=== PATIENT | male | born 1950 | race Caucasian/White ===

== ENCOUNTER 2018-05-13 16:58 | Inpatient (IN) | payer OTHER ==
[2018-05-13] MEDS: morphine 4 MG/ML VIAL IV (17:08)
[2018-05-13] MEDS: ONDANSETRON 4 MG INJ IV (17:08)
[2018-05-13 17:17] LABS: ADD MAN DIFF? NO
[2018-05-13 17:18] LABS: BASOPHIL # 0.1 10^3/ul (0.0-0.1); BASOPHILS % 0.4 % (0.0-2.0); EOSINOPHILS # 0.1 10^3/ul (0.0-0.5); EOSINOPHILS % 0.7 % (0.0-7.0); HEMATOCRIT 41.5 % (42.0-52.0); HEMOGLOBIN 14.3 g/dl (14.0-18.0); LYMPHOCYTES # 2.2 10^3/ul (0.8-2.9); LYMPHOCYTES % 13.7 % (15.0-51.0); MEAN CORPUSCULAR HEMOGLOBIN 31.8 pg (29.0-33.0); MEAN CORPUSCULAR HGB CONC 34.5 g/dl (32.0-37.0); MEAN CORPUSCULAR VOLUME 92.2 fl (82.0-101.0); MEAN PLATELET VOLUME 9.8 fl (7.4-10.4); MONOCYTES % 6.1 % (0.0-11.0); NEUTROPHIL # 12.5 10^3/ul (1.6-7.5); NEUTROPHILS % 78.4 % (39.0-77.0); PLATELET COUNT 292 10^3/UL (140-415); RED CELL DISTRIBUTION WIDTH 13.4 % (11.5-14.5)
[2018-05-13 17:38] LABS: ANION GAP 17 (8-16); BLOOD UREA NITROGEN 17 mg/dl (7-20); CALCIUM 9.7 mg/dl (8.4-10.2); CARBON DIOXIDE 21 mmol/L (21-31); CHLORIDE 107 mmol/L (97-110); CREATININE 1.05 mg/dl (0.61-1.24); GLUCOSE 143 mg/dl (70-220); INR 0.96; POTASSIUM 3.9 mmol/L (3.5-5.1); PROTIME 12.9 Sec (11.9-14.9); SODIUM 141 mmol/L (135-144)
[2018-05-13 17:39] LABS: PARTIAL THROMBOPLASTIN TIME 37.7 Sec (25.0-35.0)
[2018-05-13 17:48] LABS: TROPONIN-I 0.011 ng/ml (0.000-0.120)
[2018-05-13 18:22] LABS: ETHANOL < 10.0 mg/dl
[2018-05-13] MEDS ORDERED: ONDANSETRON 4 MG INJ IV ×2 (18:30→19:00)
[2018-05-13] MEDS ORDERED: ACETAMINOPHEN 325 MG TAB PO (18:30)
[2018-05-13] MEDS ORDERED: morphine 2 MG INJ IV ×2 (19:00→23:30)
[2018-05-13] MEDS ORDERED: MAGNESIUM HYDROXIDE 30ML CUP PO (19:00)
[2018-05-13] MEDS ORDERED: BISACODYL (EC) 5 MG TAB PO (19:00)
[2018-05-13] MEDS ORDERED: DOCUSATE SODIUM 100 MG CAP PO (19:00)
[2018-05-13] MEDS ORDERED: NACL 0.9% 3 ML SYG IV (19:00)
[2018-05-13] MEDS: HYDROmorphONE 2 MG/ML SYG IV (19:13)
[2018-05-13] MEDS: SOD CHLORIDE 0.45% 1,000 ML IV (20:11)
[2018-05-13] MEDS: L ACIDOPHIL/B LACTIS/B LONGUM CAPSULE PO (21:00)
[2018-05-13] MEDS: ATORVASTATIN 40 MG TAB PO (21:00)
[2018-05-13] MEDS ORDERED: METOCLOPRAMIDE 10 MG INJ (22:34)
[2018-05-13] MEDS ORDERED: MIDAZOLAM 1 MG/ML 2 ML INJ (22:34)
[2018-05-13] MEDS ORDERED: ONDANSETRON 4 MG INJ (22:34)
[2018-05-13] MEDS ORDERED: CEFAZOLIN 1 GM INJ (22:37)
[2018-05-13] MEDS ORDERED: FENTAnyl 50 MCG/ML VIAL (22:37)
[2018-05-13] MEDS: POLYMYXIN B 500000 UNIT INJ (23:03)
[2018-05-13] MEDS: BACITRACIN 50000 UNITS INJ (23:03)
[2018-05-13] MEDS ORDERED: HYDROCODONE/APAP (5/325) TAB PO (23:30)
[2018-05-14 00:49] LABS: ADD MAN DIFF? NO
[2018-05-14 00:50] LABS: WHITE BLOOD COUNT 13.6 10^3/ul (4.8-10.8)
[2018-05-14 00:50] LABS: BASOPHILS % 0.1 % (0.0-2.0); HEMATOCRIT 36.1 % (42.0-52.0); HEMOGLOBIN 12.2 g/dl (14.0-18.0); LYMPHOCYTES # 1.2 10^3/ul (0.8-2.9); LYMPHOCYTES % 9.1 % (15.0-51.0); MEAN CORPUSCULAR HEMOGLOBIN 31.7 pg (29.0-33.0); MEAN CORPUSCULAR HGB CONC 33.8 g/dl (32.0-37.0); MEAN CORPUSCULAR VOLUME 93.8 fl (82.0-101.0); MEAN PLATELET VOLUME 9.2 fl (7.4-10.4); MONOCYTE # 0.5 10^3/ul (0.3-0.9); MONOCYTES % 3.3 % (0.0-11.0); NEUTROPHIL # 11.8 10^3/ul (1.6-7.5); NEUTROPHILS % 86.8 % (39.0-77.0); PLATELET COUNT 227 10^3/UL (140-415); RED BLOOD COUNT 3.85 10^6/ul (4.70-6.10); RED CELL DISTRIBUTION WIDTH 13.5 % (11.5-14.5)
[2018-05-14 01:14] LABS: ANION GAP 8 (8-16); BLOOD UREA NITROGEN 20 mg/dl (7-20); CALCIUM 9.1 mg/dl (8.4-10.2); CARBON DIOXIDE 30 mmol/L (21-31); CHLORIDE 104 mmol/L (97-110); CREATININE 0.94 mg/dl (0.61-1.24); GLUCOSE 145 mg/dl (70-220); POTASSIUM 4.3 mmol/L (3.5-5.1); SODIUM 138 mmol/L (135-144)
[2018-05-14] MEDS: SOD CHLORIDE 0.45% 1,000 ML IV ×2 (04:37→11:37)
[2018-05-14 05:08] LABS: ADD MAN DIFF? NO
[2018-05-14 05:13] LABS: BASOPHILS % 0.2 % (0.0-2.0); EOSINOPHILS % 0.1 % (0.0-7.0); HEMATOCRIT 35.7 % (42.0-52.0); HEMOGLOBIN 11.9 g/dl (14.0-18.0); LYMPHOCYTES # 2.2 10^3/ul (0.8-2.9); MEAN CORPUSCULAR HEMOGLOBIN 31.2 pg (29.0-33.0); MEAN CORPUSCULAR HGB CONC 33.3 g/dl (32.0-37.0); MEAN CORPUSCULAR VOLUME 93.7 fl (82.0-101.0); MONOCYTE # 0.7 10^3/ul (0.3-0.9); MONOCYTES % 6.6 % (0.0-11.0); NEUTROPHIL # 7.5 10^3/ul (1.6-7.5); NEUTROPHILS % 71.4 % (39.0-77.0); PLATELET COUNT 220 10^3/UL (140-415); RED BLOOD COUNT 3.81 10^6/ul (4.70-6.10); RED CELL DISTRIBUTION WIDTH 13.5 % (11.5-14.5)
[2018-05-14 05:13] LABS: WHITE BLOOD COUNT 10.4 10^3/ul (4.8-10.8)
[2018-05-14 05:47] LABS: ALANINE AMINOTRANSFERASE 26 IU/L (13-69); ALBUMIN 3.4 g/dl (3.3-4.9); ALBUMIN/GLOBULIN RATIO 1.06; ALKALINE PHOSPHATASE 70 IU/L (42-121); ANION GAP 11 (8-16); ASPARTATE AMINO TRANSFERASE 24 IU/L (15-46); BILIRUBIN,INDIRECT 0.6 mg/dl (0-1.1); BILIRUBIN,TOTAL 0.6 mg/dl (0.2-1.3); BLOOD UREA NITROGEN 20 mg/dl (7-20); CALCIUM 8.8 mg/dl (8.4-10.2); CARBON DIOXIDE 29 mmol/L (21-31); CHLORIDE 105 mmol/L (97-110); CREATININE 0.89 mg/dl (0.61-1.24); GLUCOSE 103 mg/dl (70-220); MAGNESIUM 1.7 mg/dl (1.7-2.5); POTASSIUM 4.5 mmol/L (3.5-5.1); SODIUM 140 mmol/L (135-144); TOTAL PROTEIN 6.6 g/dl (6.1-8.1)
[2018-05-14] MEDS: CEFAZOLIN 1 GM/50 ML (PMX) 50 ML IVPB ×3 (06:05→21:41)
[2018-05-14] MEDS: L ACIDOPHIL/B LACTIS/B LONGUM CAPSULE PO ×3 (09:41→21:36)
[2018-05-14] MEDS: LISINOPRIL 20 MG TAB PO (09:42)
[2018-05-14] MEDS: HYDROCODONE/APAP (5/325) TAB PO (18:43)
[2018-05-14] MEDS: ATORVASTATIN 40 MG TAB PO (21:36)
[2018-05-15] MEDS: SOD CHLORIDE 0.45% 1,000 ML IV ×2 (00:37→13:32)
[2018-05-15] MEDS: HYDROCODONE/APAP (5/325) TAB PO (00:51)
[2018-05-15] MEDS: CEFAZOLIN 1 GM/50 ML (PMX) 50 ML IVPB ×3 (06:00→21:03)
[2018-05-15] MEDS: L ACIDOPHIL/B LACTIS/B LONGUM CAPSULE PO ×3 (08:27→21:02)
[2018-05-15] MEDS: LISINOPRIL 20 MG TAB PO (08:28)
[2018-05-15] MEDS: ATORVASTATIN 40 MG TAB PO (21:02)
[2018-05-15] MEDS: ACETAMINOPHEN 325 MG TAB PO (21:03)
[2018-05-16] MEDS: CEFAZOLIN 1 GM/50 ML (PMX) 50 ML IVPB ×3 (06:38→22:44)
[2018-05-16 06:51] LABS: AMPHETAMINE/METHAMPHETAMINE Negative (NEGATIVE); BARBITURATES Negative (NEGATIVE); BENZODIAZEPINES Negative (NEGATIVE); CANNABINOIDS Positive (NEGATIVE); COCAINE Negative (NEGATIVE); OPIATES Positive (NEGATIVE)
[2018-05-16] MEDS ORDERED: CEFAZOLIN 1 GM INJ (07:00)
[2018-05-16] MEDS ORDERED: METOCLOPRAMIDE 10 MG INJ (07:00)
[2018-05-16] MEDS ORDERED: DEXAMETHASONE 4 MG/ML 1 ML INJ (07:00)
[2018-05-16] MEDS ORDERED: ONDANSETRON 4 MG INJ (07:00)
[2018-05-16] MEDS: L ACIDOPHIL/B LACTIS/B LONGUM CAPSULE PO ×3 (08:30→20:17)
[2018-05-16] MEDS: LISINOPRIL 20 MG TAB PO (08:30)
[2018-05-16] MEDS ORDERED: MEPERIDINE 25 MG INJ IV (17:30)
[2018-05-16] MEDS ORDERED: DIPHENHYDRAMINE 50 MG INJ IV (17:30)
[2018-05-16] MEDS ORDERED: LABETALOL HCL 20MG INJ IV (17:30)
[2018-05-16] MEDS ORDERED: ONDANSETRON 4 MG INJ IV (17:30)
[2018-05-16] MEDS ORDERED: HYDROmorphONE 1 MG/5 ML IV SYRINGE IV ×2 (17:30)
[2018-05-16] MEDS ORDERED: FENTAnyl 50 MCG/ML VIAL IV ×2 (17:30)
[2018-05-16] MEDS ORDERED: hydrALAzine 20 MG INJ IV (17:30)
[2018-05-16] MEDS ORDERED: BACITRACIN 50000 UNITS INJ (17:33)
[2018-05-16] MEDS ORDERED: POLYMYXIN B 500000 UNIT INJ (17:36)
[2018-05-16] MEDS ORDERED: PROPOFOL 20 ML (17:55)
[2018-05-16] MEDS ORDERED: LIDOCAINE 2% (SDV) 5 ML INJ (17:55)
[2018-05-16] MEDS ORDERED: FENTAnyl 50 MCG/ML VIAL (17:56)
[2018-05-16] MEDS ORDERED: MIDAZOLAM 1 MG/ML 2 ML INJ (17:56)
[2018-05-16] MEDS: POLYMYXIN B 500000 UNIT INJ IRR (18:25)
[2018-05-16] MEDS ORDERED: ACETAMINOPHEN 1000MG/100ML IV 100 ML (18:37)
[2018-05-16] MEDS: IPRATROPIUM (NEB) 0.5 MG/2.5 ML AMP HHN (19:17)
[2018-05-16] MEDS: LEVALBUTEROL (NEB) 0.63 MG/3 ML AMP HHN (19:17)
[2018-05-16] MEDS ORDERED: morphine 2 MG INJ IV (19:30)
[2018-05-16] MEDS ORDERED: HYDROCODONE/APAP (5/325) TAB PO (19:30)
[2018-05-16] MEDS: ATORVASTATIN 40 MG TAB PO (20:17)
[2018-05-17] MEDS: CEFAZOLIN 1 GM/50 ML (PMX) 50 ML IVPB ×3 (05:51→21:31)
[2018-05-17] MEDS: L ACIDOPHIL/B LACTIS/B LONGUM CAPSULE PO ×3 (08:50→21:31)
[2018-05-17] MEDS: LISINOPRIL 20 MG TAB PO (08:51)
[2018-05-17] MEDS: ATORVASTATIN 40 MG TAB PO (21:31)
[2018-05-17] MEDS ORDERED: morphine LIQ (10 MG/5 ML) CUP PO (23:30)
[2018-05-18] MEDS: CEFAZOLIN 1 GM/50 ML (PMX) 50 ML IVPB ×2 (05:30→13:00)
[2018-05-18] MEDS: L ACIDOPHIL/B LACTIS/B LONGUM CAPSULE PO ×2 (09:42→13:01)
[2018-05-18] MEDS: LISINOPRIL 20 MG TAB PO (09:43)
== END 2018-05-18 16:15 | disposition home or self-care (01) | DRG 983 ==
LOC: E/R 16:58 → MS1 18:08
PROC: 0KNT0ZZ Release Left Lower Leg Muscle, Open Approach (ICD-10-PCS; principal; 2018-05-13 22:30)
DX: T79.A22A Traumatic compartment syndrome of left lower extremity, initial encounter (principal); I10 Essential (primary) hypertension; E78.5 Hyperlipidemia, unspecified; I25.10 Atherosclerotic heart disease of native coronary artery without angina pectoris; Z95.5 Presence of coronary angioplasty implant and graft; V89.2XXA Person injured in unspecified motor-vehicle accident, traffic, initial encounter
CPT/HCPCS: 36415; 71045; 73590; 80048; 80053; 80307; 83735; 84484; 85025; 85610; 85730; 87070; 93005; 94664; 96374; 96375; 97161; 99291-25